=== PATIENT | male | born 1970 | race African-American/Black ===

== ENCOUNTER 2018-10-18 23:44 | Emergency (ER) | payer OTHER ==
[~2018-10-18] VITALS: Ht 182.9 cm; Wt 77.1 kg
--- NOTE | 2018-10-19 00:07 | ED Fall/Injury ---
General Chief Complaint: Trauma-Non Activation Stated Complaint: FELL DOWN STAIRS,BACK PAIN Source: patient History of Present Illness Date Seen by Provider: Oct 18, 2018 Time Seen by Provider: 23:53 Initial Comments PT ARRIVES VIA POV FROM HOME--THEN WANTS WHEELCHAIR ON ARRIVAL AND INTO ER ROOM PT STATES AROUND 1500 THIS AFTERNOON, HE WAS "RUNNING DOWN THE STAIRS" INTO THE BASEMENT, AND SLIPPED AND FELL DOWN 3-4 STEPS STATES HE FELL BACK AND LANDED ON HIS BACK STATES "I HAVE PAIN IN THE LOWER LUMBAR ON THE RIGHT SIDE" HAS CHRONIC BACK PAIN NO RADIATION OF PAIN, BUT STANDING/PUTTING WEIGHT ON RIGHT LEG INCREASES PAIN NO PARESTHESIAS OR MOTOR DEFICITS NO PROBLEMS WITH BOWEL OR BLADDER FUNCTION TOOK 1 NAPROXEN 1 HOUR AGO WITHOUT RELIEF. HAS NOT TAKEN ANYTHING ELSE FOR PAIN DID NOT HIT HEAD AND NO LOSS OF CONSCIOUSNESS NO NECK OR UPPER BACK PAIN NO EXTREMITY PAIN, OR HIP PAIN PCP: [facility] IN [place] Allergies and Home Medications Allergies Coded Allergies: No Known Drug Allergies (Unverified , 10/19/18) Patient Home Medication List Home Medication List Reviewed: Yes Review of Systems Review of Systems Constitutional: no symptoms reported Eyes: No Symptoms Reported Ears, Nose, Mouth, Throat: no symptoms reported Respiratory: no symptoms reported Cardiovascular: no symptoms reported Gastrointestinal: no symptoms reported Genitourinary: no symptoms reported Musculoskeletal: see HPI, back pain Skin: no symptoms reported Psychiatric/Neurological: No Symptoms Reported Past Urdonhs-Lehxaz-Wjsdjy Hx Patient Social History Recent Foreign Travel: No Contact w/Someone Who Travel: No Past Medical History Musculoskeletal: Yes Chronic Back Pain Physical Exam Vital Signs Vital Signs - First Documented 10/18/18 23:51 Temp 98.2 Pulse 107 Resp 18 B/P (MAP) 163/113 (130) Pulse Ox 96 O2 Delivery Room Air Capillary Refill : Height, Weight, BMI Height: '" Weight: lbs. oz. kg; BMI Method: General Appearance: WD/WN, no apparent distress, other (SITTING UPRIGHT ON SIDE OF BED, DOES NOT APPEAR TO BE IN ANY DISCOMFORT OR DISTRESS. 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, no motor/sensory deficits, alert, normal mood/affect, oriented x 3 Skin: normal color (PT IS BLACK), warm/dry, tattoos/piercings (EXTENSIVE TATTOOS) [place] Coma Score Best Eye Response: (4) Open Spontaneously Best Verbal Response: (5) Oriented Best Motor Response: (6) Obeys Commands [place] Total: 15 Progress/Results/Core Measures Results/Orders My Orders Orders - KATELYNN SNYDER DO Ct Lumbar Spine Wo (10/19/18 00:00) Ct Pelvis Wo (10/19/18 00:00) Ketorolac Injection (Toradol Injection) (10/19/18 01:30) Orphenadrine Injection (Norflex Injectio (10/19/18 01:30) Vital Signs/I&O 10/18/18 23:51 Temp 98.2 Pulse 107 Resp 18 B/P (MAP) 163/113 (130) Pulse Ox 96 O2 Delivery Room Air Progress Progress Note : Progress Note SLEPT VERY SOUNDLY FOR REMAINDER OF ER STAY--LAYING FLAT AND COMPLETELY OUTSTRETCHED Diagnostic Imaging Comments CT LUMBAR SPINE--NO ACUTE FRACTURE, CHRONIC DEGENERATIVE CHANGES OF LUMBAR SPINE --DISC BULGE L3-L4, L4-L5, L5-S1. WITH MODERATE TO SEVERE SPINAL STENOSIS--PER [facility] VIA FAX @ 0115 CT PELVIS--NO ACUTE FRACTURE--PER [facility] VIA FAX @ 5139 Reviewed: Reviewed by Me Departure Impression Primary Impression: S/P FALL DOWN STAIRS Additional Impressions: Pain of right sacroiliac joint LOWER BACK STRAIN EXACERBATION OF CHRONIC LOWER BACK PAIN Disposition: 01 HOME, SELF-CARE Condition: Stable Departure-Patient Inst. Referrals: NO,LOCAL PHYSICIAN (PCP/Family) Primary Care Physician Patient Instructions: CHRONIC PAIN, Low Back Pain (DC), Sacroiliac Joint Pain (DC) Add. Discharge Instructions: ALTERNATE ICE AND HEAT TO SORE AREA AT 20 MINUTE INTERVALS USE TENS UNIT NEEDED FOR PAIN [facility] All discharge instructions reviewed with patient and/or family. Voiced understanding. Scripts Methylprednisolone (Medrol) 4 Mg Tab.ds.pk 4 MG PO UD, #1 PKG Prov: KATELYNN SNYDER DO 10/19/18 Methocarbamol (Robaxin) 500 Mg Tablet 500 MG PO QID for Muscle Spasms, #20 TAB Prov: KATELYNN SNYDER DO 10/19/18 KATELYNN SNYDER DO Oct 19, 2018 00:07
[2018-10-19] MEDS ORDERED: METH4TAB PO (01:29)
[2018-10-19] MEDS ORDERED: METH500T PO (01:29)
[2018-10-19] MEDS ORDERED: ORPHENADRINE 60 MG/2 ML (NORFLEX) AMP IM ONE (01:30)
[2018-10-19] MEDS ORDERED: KETOROLAC 60 MG/2 ML VIAL IM ONE (01:30)
[2018-10-19] MEDS ORDERED: RX-CYCLOBENZAPRINE 10 MG (FLEXERIL) TAB PPK#3 PO STA (01:30)
[2018-10-19 01:40] VITALS: BP 164/113
[2018-10-19] MEDS ORDERED: RX-CYCLOBENZAPRINE 10 MG (FLEXERIL) TAB PPK#3 PO PRN (01:45)
--- NOTE | 2018-10-19 07:15 | Diagnostic Imaging Report ---
PROCEDURE: CT pelvis without contrast. TECHNIQUE: Multiple contiguous axial images were obtained through the pelvis without the use of intravenous contrast. Sagittal and coronal reformations were performed. Auto Exposure Controls were utilized during the CT exam to meet ALARA standards for radiation dose reduction. INDICATION: Low back pain post fall. CORRELATION STUDY: None FINDINGS: Pelvis is intact with evidence for acute displaced pelvic fracture. Bilateral hip joints maintained. There is ankylosis across the bilateral sacroiliac joints. Sacrum intact. Soft tissue assessment is limited given bony algorithm. There is however asymmetric edema in the subcutaneous tissues of the right gluteal region . IMPRESSION: 1. Negative for acute displaced pelvic fracture. 2. Prominent asymmetric soft tissue edema/hematoma about the right gluteal region. Dictated by: Dictated on workstation # [id number]
--- NOTE | 2018-10-19 07:17 | Diagnostic Imaging Report ---
PROCEDURE: CT lumbar spine without contrast. TECHNIQUE: Multiple contiguous axial images were obtained through the lumbar spine without the use of intravenous contrast. Sagittal and coronal reformations were then performed. Auto Exposure Controls were utilized during the CT exam to meet ALARA standards for radiation dose reduction. INDICATION: Low back pain post fall. CORRELATION STUDY: None FINDINGS: Lumbar spinal alignment anatomic. Lumbar vertebral body heights are maintained. No acute fracture. The posterior elements intact and in normal alignment. There is slight broad-based disc protrusion at the L3-L4 level slightly extrinsic towards the right. Moderate spinal stenosis. At the L4-5 level, broad-based disc protrusion, ligamentum flavum hypertrophy. Results in rather significant spinal stenosis. L5-S1 level demonstrates mild disc bulge. IMPRESSION: 1. Negative for acute lumbar fracture. 2. Lumbar disc disease as above. There are areas of resultant spinal canal stenosis. A preliminary report was provided by [facility]. Dictated by: Dictated on workstation # [id number]
== END 2018-10-19 01:40 | disposition home or self-care (01) ==
LOC: ER 23:46
DX: S39.012A Strain of muscle, fascia and tendon of lower back, initial encounter (principal); M53.3 Sacrococcygeal disorders, not elsewhere classified; G89.29 Other chronic pain; R40.2142 Coma scale, eyes open, spontaneous, at arrival to emergency department; R40.2252 Coma scale, best verbal response, oriented, at arrival to emergency department; R40.2362 Coma scale, best motor response, obeys commands, at arrival to emergency department; W10.8XXA Fall (on) (from) other stairs and steps, initial encounter
CPT/HCPCS: 72131; 72192

== ENCOUNTER 2019-11-09 22:04 | Emergency (ER) | payer BC ==
[~2019-11-09] VITALS: Ht 190 cm; Wt 81.0 kg
[~2019-11-09 22:04] MED LIST: METH4TAB PO; METH500T PO
[2019-11-09] MEDS ORDERED: RT-ALBUTEROL SULF 2.5 MG/3 ML PRE-MIX VIAL ONE (22:33)
[2019-11-09] MEDS ORDERED: RX-ALBUTEROL INHALER (PROAIR) 8.5 GM IH ONE (22:35)
[2019-11-09] MEDS ORDERED: RX-ALBUTEROL INHALER (PROAIR) 8.5 GM IH STA (22:40)
[2019-11-09 22:43] LABS: BASOPHILS % (AUTO) 1 % (0-10); EOSINOPHILS # (AUTO) 0.1 10^3/uL (0.0-0.3); EOSINOPHILS % (AUTO) 2 % (0-10); HEMATOCRIT 43 % (40-54); HEMOGLOBIN 15.5 G/DL (13.3-17.7); LYMPHOCYTES # (AUTO) 2.6 X 10^3 (1.0-4.0); LYMPHOCYTES % (AUTO) 33 % (12-44); MEAN CORPUSCULAR HEMOGLOBIN 27 PG (25-34); MEAN CORPUSCULAR HGB CONC 36 G/DL (32-36); MEAN CORPUSCULAR VOLUME 75 FL (80-99); MEAN PLATELET VOLUME 11.6 FL (7.4-10.4); MONOCYTES # (AUTO) 0.7 X 10^3 (0.0-1.0); MONOCYTES % (AUTO) 9 % (0-12); NEUTROPHILS # (AUTO) 4.6 X 10^3 (1.8-7.8); NEUTROPHILS % (AUTO) 57 % (42-75); PLATELET COUNT 189 10^3/uL (130-400); RED CELL DISTRIBUTION WIDTH 15.4 % (10.0-14.5)
--- NOTE | 2019-11-09 22:51 | ED Cough/URI ---
General Chief Complaint: Respiratory Problems Stated Complaint: SOA / COUGH / FEVER History of Present Illness Date Seen by Provider: Nov 09, 2019 Time Seen by Provider: 22:19 Initial Comments 49 year old male presents with productive cough, chills, hasn't checked temperature, and SOA. History of asthma, but hasn't used inhaler in several years. No known COVID 19 exposure, but several family members come and go from the home and to work/other family member homes. No travel outside [facility] Appetite has been good, eating normal, able to attend work, no change in sense of smell. Smokes 1/2 pack a day. He works at [employer]. Timing/Duration: yesterday Severity/Quality: productive cough Prior Episodes/Possible Cause: no prior episodes Associated Symptoms: chest pain/soreness, cough, fever/chills, muscle aches, nasal congestion, shortness of breath, wheezing Allergies and Home Medications Allergies Coded Allergies: No Known Drug Allergies (Unverified , 10/19/18) Home Medications Azithromycin 250 Mg Tablet, 250 MG PO DAILY Prescribed by: REMA TYLER on 11/09/19 232 Dexamethasone 4 Mg Tablet, 4 MG PO DAILY Prescribed by: REMA TYLER on 11/09/19 232 Methocarbamol 500 Mg Tablet, 500 MG PO QID Prescribed by: KATELYNN SNYDER on 10/19/18 012 Methylprednisolone 4 Mg Tab.ds.pk, 4 MG PO UD Prescribed by: KATELYNN SNYDER on 10/19/18 0129 Patient Home Medication List Home Medication List Reviewed: Yes Review of Systems Review of Systems Constitutional: see HPI, chills, malaise EENTM: see HPI, no symptoms reported Respiratory: see HPI, cough, short of breath, wheezing Cardiovascular: no symptoms reported, see HPI; No chest pain Gastrointestinal: no symptoms reported, see HPI; No abdominal pain, No heartburn, No loss of appetite, No nausea, No vomiting Skin: no symptoms reported, see HPI All Other Systems Reviewed Negative Unless Noted: Yes Past Esazado-Etjiwj-Rgvfdn Hx Past Med/Social Hx: Reviewed Nursing Past Med/Soc Hx Patient Social History Drug of Choice: THC Type Used: Cigarettes 2nd Hand Smoke Exposure: Yes Recent Hopitalizations: No Seasonal Allergies Seasonal Allergies: No Past Medical History Surgeries: No (DENIES) Respiratory: No Cardiac: Yes Hypertension Neurological: No Genitourinary: No Gastrointestinal: No Musculoskeletal: Yes Chronic Back Pain Endocrine: No HEENT: No Cancer: No Psychosocial: No Physical Exam Vital Signs - First Documented 11/09/19 22:19 Temp 37.1 Pulse 95 Resp 20 B/P (MAP) 169/109 (129) Pulse Ox 97 O2 Delivery Room Air Capillary Refill : Height: 6'0" Weight: 170lbs. oz. [phone]; BMI Method:Stated General Appearance: WD/WN, no apparent distress Eyes: Bilateral Eye Normal Inspection, Bilateral Eye PERRL, Bilateral Eye EOMI HEENT: PERRL/EOMI, normal ENT inspection, TMs normal, pharynx normal Neck: non-tender, full range of motion, supple, normal inspection Respiratory: chest non-tender, no respiratory distress, rhonchi, wheezing Cardiovascular: normal peripheral pulses, regular rate, rhythm Gastrointestinal: normal bowel sounds, non tender, soft Extremities: normal range of motion, non-tender, normal inspection, normal capillary refill Neurologic/Psychiatric: no motor/sensory deficits, alert, normal mood/affect, oriented x 3 Skin: normal color, warm/dry Lymphatic: no adenopathy Progress/Results/Core Measures Suspected Sepsis SIRS Temperature: Pulse: Respiratory Rate: Laboratory Tests 11/09/19 22:37: White Blood Count 8.0 Blood Pressure / Mean: Laboratory Tests 11/09/19 22:37: Creatinine 1.24, Platelet Count 189, Total Bilirubin 0.3 Results/Orders Lab Results Laboratory Tests Test 11/09/19 22:37 Range/Units White Blood Count 8.0 4.3-11.0 10^3/uL Red Blood Count 5.71 4.35-5.85 10^6/uL Hemoglobin 15.5 13.3-17.7 G/DL Hematocrit 43 40-54 % Mean Corpuscular Volume 75 L 80-99 FL Mean Corpuscular Hemoglobin 27 25-34 PG Mean Corpuscular Hemoglobin Concent 36 32-36 G/DL Red Cell Distribution Width 15.4 H 10.0-14.5 % Platelet Count 189 130-400 10^3/uL Mean Platelet Volume 11.6 H 7.4-10.4 FL Neutrophils (%) (Auto) 57 42-75 % Lymphocytes (%) (Auto) 33 12-44 % Monocytes (%) (Auto) 9 0-12 % Eosinophils (%) (Auto) 2 0-10 % Basophils (%) (Auto) 1 0-10 % Neutrophils # (Auto) 4.6 1.8-7.8 X 10^3 Lymphocytes # (Auto) 2.6 1.0-4.0 X 10^3 Monocytes # (Auto) 0.7 0.0-1.0 X 10^3 Eosinophils # (Auto) 0.1 0.0-0.3 10^3/uL Basophils # (Auto) 0.0 0.0-0.1 10^3/uL Erythrocyte Sedimentation Rate 1 0-15 MM/HR D-Dimer 0.33 0.00-0.49 UG/ML Sodium Level 140 135-145 MMOL/L Potassium Level 4.1 3.6-5.0 MMOL/L Chloride Level 107 98-107 MMOL/L Carbon Dioxide Level 22 21-32 MMOL/L Anion Gap 11 5-14 MMOL/L Blood Urea Nitrogen 12 7-18 MG/DL Creatinine 1.24 0.60-1.30 MG/DL Estimat Glomerular Filtration Rate > 60 BUN/Creatinine Ratio 10 Glucose Level 104 70-105 MG/DL Calcium Level 9.0 8.5-10.1 MG/DL Corrected Calcium 8.7 8.5-10.1 MG/DL Total Bilirubin 0.3 0.1-1.0 MG/DL Aspartate Amino Transf (AST/SGOT) 27 5-34 U/L Alanine Aminotransferase (ALT/SGPT) 33 0-55 U/L Alkaline Phosphatase 84 40-136 U/L Lactate Dehydrogenase 182 125-220 U/L Troponin I 0.028 <0.028 NG/ML C-Reactive Protein High Sensitivity 0.18 0.00-0.50 MG/DL Total Protein 7.2 6.4-8.2 GM/DL Albumin 4.4 3.2-4.5 GM/DL Procalcitonin 0.02 <0.10 NG/ML Micro Results Microbiology 11/09/19 Influenza Types A,B Antigen (SHAMA) - Final, Complete My Orders Orders - REMA TYLER Cbc With Automated Diff (11/09/19 22:07) Comprehensive Metabolic Panel (11/09/19 22:07) Fibrin Degradation Products (11/09/19 22:07) Procalcitonin (Pct) (11/09/19 22:07) Hs C Reactive Protein (11/09/19 22:07) Erythrocyte Sedimentation Rate (11/09/19 22:07) LDH (11/09/19 22:07) Chest 1 View, Ap/Pa Only (11/09/19 22:34) Rx-Albuterol Inhaler (Rx-Proair) (11/09/19 22:40) Albuterol Pre-Mix Nebs (Rt) (Proventil (11/09/19 22:33) Rx-Albuterol Inhaler (Rx-Proair) (11/09/19 22:35) Troponin I (11/09/19 22:37) Influenza A And B Antigens (11/09/19 23:09) Azithromycin Tablet (Zithromax Tablet) (11/09/19 23:15) Metoprolol Tartrate Injection (Lopressor (11/09/19 23:30) Dexamethasone Injection (Decadron Inject (11/09/19 23:30) Medications Given in ED Current Medications Medications Dose Ordered Sig/Carmelita Route Start Time Stop Time Status Last Admin Dose Admin Azithromycin 500 mg ONCE ONCE PO 11/09/19 23:15 11/09/19 23:16 UNV 11/09/19 23:20 500 MG Dexamethasone Sodium Phosphate 4 mg ONCE ONCE IV 11/09/19 23:30 11/09/19 23:31 UNV 11/09/19 23:25 4 MG Metoprolol Tartrate 5 mg ONCE ONCE IV 11/09/19 23:30 11/09/19 23:31 UNV 11/09/19 23:27 5 MG Vital Signs/I&O 11/09/19 22:19 Temp 37.1 Pulse 95 Resp 20 B/P (MAP) 169/109 (129) Pulse Ox 97 O2 Delivery Room Air Capillary Refill : Progress Note : Time: 22:19 Progress Note Patient seen and evaluated, will labs, does not meet criteria for COVID testing. Will obtain Chest x-ray. Pulse 90-100, SaO2 95-98% on RA. No resp distress. 0 2 puffs albuterol MDI with spacer. 2244 Continues to have HR in 90s. Chest xray indicative of RLL Pneum. Lungs continue to have wheezing in upper lobes and rhonchi right LL. SaO2 96% on RA. W ill give 2 additional MDI puffs with albuterol. 2300 Discussed CXR and labs with Dr. Lund, will give azithromycin 500 mg orally and Decadron 4 mg IV. Plan d/c to home. 2324 B/P continues to be elevated 170/110, will give Metoprolol 5 mg IV. He was on B/P medication in the past but it was stopped. Will establish care with PCP and have this addressed. Labs WNL. 2340 B/P trending down 150s/90s. Pulse 76-88. SaO2 97%. Patient reports less chest congestion and no SOA. Influenza negative. Discharge instructions, quarantine restrictions and return precautions reviewed. Diagnostic Imaging Diagonstic Imaging: Xray Plain Films/CT/US/NM/MRI: chest Comments Right lower lobe infiltrate. Reviewed: Reviewed/Discussed (With Dr Lund) Departure Impression Primary Impression: Pneumonia Qualified Codes: J18.1 - Lobar pneumonia, unspecified organism Additional Impressions: Asthma Qualified Codes: J45.20 - Mild intermittent asthma, uncomplicated Hypertension Qualified Codes: I10 - Essential (primary) hypertension Disposition: HOME, SELF-CARE Condition: Stable Departure-Patient Inst. Referrals: NO,LOCAL PHYSICIAN (PCP/Family) Primary Care Physician Patient Instructions: COVID19, Community-Acquired Pneumonia, Adult (DC), High Blood Pressure (DC) Add. Discharge Instructions: Stay at home and quarantine, until you feel good for 3 days and no fever. Obtain thermometer and check your temperature. Quarantine away from other family members. Wear mask when you must be closer than 6 feet to them. Take antibiotics, as prescribed. Use the inhaler 2-4 puffs every 4 hours, as needed for chest tightness and wheezing. Use Muccinex 1 tablet every 12 hours with 1 full glass of water. [facility]. Need to be seen for your blood pressure. Return to the Emergency Dept if difficulty breathing, fever greater than 101, not relieved by Tylenol or Motrin, chest pain or new, urgent health care needs. All discharge instructions reviewed with patient and/or family. Voiced understanding. Scripts Dexamethasone (Dexamethasone) 4 Mg Tablet 4 MG PO DAILY, #4 TAB 0 Refills Prov: REMA TYLER 11/09/19 Azithromycin (Azithromycin) 250 Mg Tablet 250 MG PO DAILY, #4 TAB 0 Refills Prov: REMA TYLER 11/09/19 Work/School Note: Work Release Form Date Seen in the Emergency Department: Nov 09, 2019 Other Restrictions Listed Below: May return to work when fever free for 3 days Restrictions: Off work 5-7 days REMA TYLER Nov 09, 2019 22:51
[2019-11-09 22:55] LABS: ALBUMIN 4.4 GM/DL (3.2-4.5); CHLORIDE 107 MMOL/L (98-107); POTASSIUM 4.1 MMOL/L (3.6-5.0); SODIUM 140 MMOL/L (135-145)
[2019-11-09 22:58] LABS: GLUCOSE 104 MG/DL (70-105); TOTAL PROTEIN 7.2 GM/DL (6.4-8.2)
[2019-11-09 22:59] LABS: BILIRUBIN,TOTAL 0.3 MG/DL (0.1-1.0); CARBON DIOXIDE 22 MMOL/L (21-32)
[2019-11-09 23:01] LABS: ALKALINE PHOSPHATASE 84 U/L (40-136)
[2019-11-09 23:02] LABS: CREATININE SERUM 1.24 MG/DL (0.60-1.30); GFR ESTIMATED > 60
[2019-11-09 23:03] LABS: BUN/CREATININE RATIO 10
[2019-11-09 23:04] LABS: ALANINE AMINOTRANSFERASE 33 U/L (0-55)
[2019-11-09] MEDS ORDERED: AZITHROMYCIN 250 MG TAB (ZITHROMAX) PO ONE ×2 (23:12→23:15)
[2019-11-09] MEDS ORDERED: DEXAMETHASONE 4 MG/ML SDV (DECADRON) ONE (23:15)
[2019-11-09] MEDS ORDERED: meTOprolol 5 MG/5 ML (LOPRESSOR) VIAL ONE (23:15)
[2019-11-09] MEDS ORDERED: AZIT250T12 PO (23:20)
[2019-11-09 23:21] LABS: ERYTHROCYTE SEDIMENTATION RATE 1 MM/HR (0-15)
[2019-11-09] MEDS ORDERED: DEXA4TAB PO (23:22)
[2019-11-09] MEDS ORDERED: DEXAMETHASONE 4 MG/ML SDV (DECADRON) IV ONE (23:30)
[2019-11-09] MEDS ORDERED: meTOprolol 5 MG/5 ML (LOPRESSOR) VIAL IV ONE (23:30)
[2019-11-09 23:53] VITALS: BP 163/117
--- NOTE | 2019-11-10 06:08 | Diagnostic Imaging Report ---
INDICATION: Cough and congestion COMPARISON: None FINDINGS: Single frontal view of the chest demonstrates normal heart size and pulmonary vascularity. The lungs are well aerated and clear. No large pleural effusion or pneumothorax is seen. The visualized osseous structures show no acute abnormalities. IMPRESSION: 1. No acute cardiopulmonary process. Dictated by: Dictated on workstation # [id number]
== END 2019-11-09 23:53 | disposition home or self-care (01) ==
LOC: EDUNIT# 22:04 → ER 22:07
DX: J18.1 Lobar pneumonia, unspecified organism (principal); J45.20 Mild intermittent asthma, uncomplicated; I10 Essential (primary) hypertension; M54.9 Dorsalgia, unspecified; F17.210 Nicotine dependence, cigarettes, uncomplicated
CPT/HCPCS: 36415; 71045; 80053; 83615; 84145; 84484; 85025; 85379; 85652; 86141; 87804

== ENCOUNTER → 2020-12-28 | Outpatient (REF) ==
[~2020-12-28] MED LIST changes: +AZIT250T12 PO; +DEXA4TAB PO
--- NOTE | 2020-12-28 10:49 | Diagnostic Imaging Report ---
INDICATION: Right shoulder pain for two to three months, increasing over the last two weeks. TIME OF EXAM: 10:37 a.m. FINDINGS: Glenohumeral and acromioclavicular alignment are normal. Acromiohumeral space is normal. No fracture or dislocation is identified. IMPRESSION: No acute bony abnormality is detected. Dictated by: Dictated on workstation # [id number]
--- NOTE | 2020-12-28 10:51 | Diagnostic Imaging Report ---
INDICATION: Neck pain. TIME OF EXAM: 10:34 a.m. FINDINGS: Curvature and alignment of the cervical spine is normal. There is significant degenerative disc disease at C5-C6 level with disc space narrowing and marginal osteophyte formation. Prevertebral tissues are normal. No fractures are identified. Odontoid appears intact. IMPRESSION: Cervical spondylosis, greatest at C5-C6 level. No acute bony abnormality is detected. Dictated by: Dictated on workstation # [id number]
== END ==
LOC: OCC 10:17
PROVIDERS: ATTEND Nurse Practitioner Family
DX: M47.812 Spondylosis without myelopathy or radiculopathy, cervical region (principal)
CPT/HCPCS: 72040; 73030

== ENCOUNTER → 2021-02-17 | Outpatient (CLI) | payer BC | LOC: CARD 12:00 | PROVIDERS: ATTEND Internal Medicine Cardiovascular Disease | DX: I51.7 Cardiomegaly (principal) | CPT/HCPCS: 93306 ==

== ENCOUNTER 2021-04-24 23:42 | Emergency (ER) | payer BC ==
[~2021-04-24] VITALS: Ht 152 cm; Wt 83.0 kg
[2021-04-25] MEDS ORDERED: RX-ALBUTEROL INHALER 8.5 GM HFA (PROAIR) IH STA (00:30)
--- NOTE | 2021-04-25 00:30 | ED Chest Pain ---
General Chief Complaint: Cough/Cold/Flu Symptoms Stated Complaint: SOB,CP,HIGH BLOOD PRESSURE Nursing Triage Note: PT PRESENTS TO THE ED C/O COUGH, CHEST PAIN AND FEELING UNABLE TO TAKE A FULL BREATH FOR THE LAST FOUR DAYS. SYMPTOMS BEGAN CONGESTION AND COUGH, DEVELOPED MIDSTRENAL CP TWO DAYS AGO THAT IS DESCRIBED SHARP Source: patient Exam Limitations: no limitations History of Present Illness Date Seen by Provider: Apr 25, 2021 Time Seen by Provider: 00:21 Initial Comments Patient to the ER by private conveyance with significant other and chief complaint of chest pain shortness of air for the past 4 days progressively worsening. He went to [place] today and they swabbed him for Covid which was negative and let him go home. He is having chest pain down his bilateral lower chest worse on deep inspiration. He has a history of hypertension and hyperlipidemia but no history of coronary disease. No history of diabetes. Smokes half pack cigarettes a day. No history of COPD or asthma that he is aware of. For the past couple days has been having intermittent left-sided of his sternum chest pain. It is deep and not changed by deep inspiration or direct palpation. No familial history of early onset coronary disease. Allergies and Home Medications Allergies Coded Allergies: No Known Drug Allergies (Unverified , 10/19/18) Patient Home Medication List Home Medication List Reviewed: Yes Azithromycin (Azithromycin) 250 Mg Tablet, 250 MG PO DAILY Prescribed by: REMA TYLER on 11/09/192319 Benzonatate (Tessalon Perles) 100 Mg Capsule, 100 MG PO Q6H PRN for COUGH Prescribed by: BRENDEN WATTS on 04/25/21 022 Dexamethasone (Dexamethasone) 4 Mg Tablet, 4 MG PO DAILY Prescribed by: REMA TYLER on 11/09/19 232 Methocarbamol (Robaxin) 500 Mg Tablet, 500 MG PO QID Prescribed by: KATELYNN SNYDER on 10/19/18 012 Methylprednisolone (Medrol) 4 Mg Tab.ds.pk, 4 MG PO UD Prescribed by: KATELYNN SNYDER on 10/19/18 012 Review of Systems Review of Systems Constitutional: No chills, No fever; malaise EENTM: No Blurred Vision, No Double Vision Respiratory: Cough, SOA With Exertion; Denies Wheezing Cardiovascular: Denies Chest Pain, Denies Edema Gastrointestinal: Denies Abdominal Pain, Denies Constipated, Denies Diarrhea Genitourinary: Denies Burning, Denies Discharge Musculoskeletal: No back pain, No joint pain Skin: No pruritus, No rash All Other Systems Reviewed Negative Unless Noted: Yes Past Bfziepy-Oxekeu-Bgwpxa Hx Patient Social History Tobacco Use?: Yes Tobacco type used: Cigarettes Use of E-Cig and/or Vaping dev: No Substance use?: No Immunizations Up To Date PED Vaccines UTD: Yes Seasonal Allergies Seasonal Allergies: No Past Medical History Surgeries: No (DENIES) Respiratory: Yes Asthma Cardiac: Yes Hypertension Neurological: No Genitourinary: Yes Kidney Stones Gastrointestinal: No Musculoskeletal: Yes Chronic Back Pain Endocrine: No HEENT: No Cancer: No Psychosocial: No Integumentary: No Physical Exam Vital Signs Vital Signs - First Documented 04/24/21 23:51 Temp 37.1 Pulse 99 Resp 18 B/P (MAP) 159/95 (116) Pulse Ox 96 O2 Delivery Room Air Capillary Refill : Less Than 3 Seconds Height, Weight, BMI Height: 6'0" Weight: 170lbs. oz. [id number]; 35.00 BMI Method:Stated General Appearance: No Apparent Distress, WD/WN HEENT: PERRL/EOMI, Pharynx Normal, Moist Mucous Membranes Neck: Full Range of Motion, Normal Inspection Respiratory: Chest Non Tender, No Accessory Muscle Use, No Respiratory Distress, Wheezing (Few, end expiratory, mild) Cardiovascular: Regular Rate, Rhythm, No JVD, Normal Peripheral Pulses Gastrointestinal: Normal Bowel Sounds, Non Tender, Soft Extremity: Normal Capillary Refill, Normal Inspection, Pedal Edema (Trace bipedal) Neurologic/Psychiatric: Alert, Oriented x3 Skin: Normal Color, Warm/Dry Progress/Results/Core Measures Results/Orders Lab Results Laboratory Tests Test 04/25/21 00:16 04/25/21 01:08 04/25/21 02:22 Range/Units White Blood Count 6.3 4.3-11.0 10^3/uL Red Blood Count 5.31 4.30-5.52 10^6/uL Hemoglobin 14.5 13.3-17.7 g/dL Hematocrit 41 40-54 % Mean Corpuscular Volume 77 L 80-99 fL Mean Corpuscular Hemoglobin 27 25-34 pg Mean Corpuscular Hemoglobin Concent 35 32-36 g/dL Red Cell Distribution Width 15.2 H 10.0-14.5 % Platelet Count 174 130-400 10^3/uL Mean Platelet Volume 11.8 9.0-12.2 fL Immature Granulocyte % (Auto) 0 % Neutrophils (%) (Auto) 46 42-75 % Lymphocytes (%) (Auto) 34 12-44 % Monocytes (%) (Auto) 19 H 0-12 % Eosinophils (%) (Auto) 1 0-10 % Basophils (%) (Auto) 0 0-10 % Neutrophils # (Auto) 2.9 1.8-7.8 10^3/uL Lymphocytes # (Auto) 2.1 1.0-4.0 10^3/uL Monocytes # (Auto) 1.2 H 0.0-1.0 10^3/uL Eosinophils # (Auto) 0.1 0.0-0.3 10^3/uL Basophils # (Auto) 0.0 0.0-0.1 10^3/uL Immature Granulocyte # (Auto) 0.0 0.0-0.1 10^3/uL Neutrophils % (Manual) 45 % Lymphocytes % (Manual) 34 % Monocytes % (Manual) 21 % Anisocytosis SLIGHT Microcytosis SLIGHT D-Dimer 0.29 0.00-0.49 UG/ML Sodium Level 137 135-145 MMOL/L Potassium Level 3.7 3.6-5.0 MMOL/L Chloride Level 105 98-107 MMOL/L Carbon Dioxide Level 21 21-32 MMOL/L Anion Gap 11 5-14 MMOL/L Blood Urea Nitrogen 15 7-18 MG/DL Creatinine 1.41 H 0.60-1.30 MG/DL Estimat Glomerular Filtration Rate 65 BUN/Creatinine Ratio 11 Glucose Level 183 H 70-105 MG/DL Calcium Level 8.8 8.5-10.1 MG/DL Corrected Calcium 8.9 8.5-10.1 MG/DL Total Bilirubin 0.3 0.1-1.0 MG/DL Aspartate Amino Transf (AST/SGOT) 35 H 5-34 U/L Alanine Aminotransferase (ALT/SGPT) 53 0-55 U/L Alkaline Phosphatase 77 40-136 U/L Troponin I < 0.028 < 0.028 <0.028 NG/ML C-Reactive Protein High Sensitivity 1.76 H 0.00-0.50 MG/DL B-Type Natriuretic Peptide < 10.0 <100.0 PG/ML Total Protein 6.9 6.4-8.2 GM/DL Albumin 3.9 3.2-4.5 GM/DL Influenza Type A Antigen NEGATIVE NEGATIVE Influenza Type B Antigen NEGATIVE NEGATIVE My Orders Orders - BRENDEN WATTS Ekg Tracing (04/24/21 23:47) Continuous Ekg Monitoring (04/24/21 23:47) Chest 1 View, Ap/Pa Only (04/25/21 00:27) Cbc With Automated Diff (04/25/21 00:27) Comprehensive Metabolic Panel (04/25/21 00:27) Hs C Reactive Protein (04/25/21 00:27) Fibrin Degradation Products (04/25/21 00:27) Troponin I (04/25/21 00:27) Rx-Albuterol Inhaler (Rx-Ventolin Hfa In (04/25/21 00:30) Manual Differential (04/25/21 00:16) Troponin I (04/25/21 02:15) Influenza A & B Antigens (04/25/21 01:05) Covid-19 External Lab Results (04/25/21 01:06) BNP (04/25/21 01:08) Vital Signs/I&O 04/24/21 23:51 Temp 37.1 Pulse 99 Resp 18 B/P (MAP) 159/95 (116) Pulse Ox 96 O2 Delivery Room Air Blood Pressure Mean: 116 Progress Progress Note : Time: 01:04 Progress Note Appears to have a viral bronchitis. Because he is having this persistent chest pain for the past couple days we will get a delta troponin. D-dimer rules out blood clots. We will give him a round of steroids. After couple puffs of ProAir he is having less expiratory wheezing but states that he feels about the same. We can give him some Tessalon Perles. We will test him for influenza. He had a negative Covid test today at [facility]. Initial ECG Impression Date: Apr 25, 2021 Initial ECG Impression Time: 00:06 Initial ECG Rate: 93 Initial ECG Rhythm: Normal Sinus Initial ECG Intervals: Normal Initial ECG Impression: Normal Comment Normal sinus rhythm without clinically relevant ST elevation or depression. There is a minimal, nondiagnostic half block ST elevation in leads V1, V2 of no certain clinical significance. Diagnostic Imaging Diagonstic Imaging: Xray Plain Films/CT/US/NM/MRI: chest Comments No acute cardiopulmonary process on 1 view chest x-ray Reviewed: Reviewed by Me Departure Impression Primary Impression: Bronchitis Additional Impressions: Pleurisy Chest wall pain Disposition: HOME, SELF-CARE Condition: Stable Departure-Patient Inst. Decision time for Depature: 03:06 Referrals: [facility] (PCP) Primary Care Physician NO,LOCAL PHYSICIAN (Family) Primary Care Physician Patient Instructions: Acute Bronchitis, Adult (DC), Pleuritic Chest Pain ED, How to Use a Metered Dose Inhaler ED Add. Discharge Instructions: 2 puffs albuterol through the spacer every 4 hours as needed for coughing fits, wheezing or shortness of air. Tessalon Perles 1 capsule every 6 hours as necessary for coughing fits. Drink plenty of fluids and use vapor rubs such as Vicks or Mentholatum. Throat lozenges with menthol or eucalyptus. Hot tea with honey and lemon can be helpful for cough and sore throat. Expect to be sick for about 7 to 10 days. Prednisone 2 tablets in the morning daily for 5 days to help reduce your cough. Follow-up with your primary care provider if not seeing improvement in the next 10 to 14 days. All discharge instructions reviewed with patient and/or family. Voiced understanding. Scripts Prednisone (Prednisone) 20 Mg Tab 40 MG PO DAILY for 5 Days, #10 TAB 0 Refills Prov: BRENDEN WATTS 04/25/21 Benzonatate (TESSALON PERLES) 100 Mg Capsule 100 MG PO Q6H PRN for COUGH, #30 CAP 0 Refills Prov: BRENDEN WATTS 04/25/21 Work/School Note: Work Release Form Date Seen in the Emergency Department: Apr 25, 2021 Return to Work: May 01, 2021 Restrictions: Return-No Fever (24hrs) BRENDEN WATTS Apr 25, 2021 00:30
[2021-04-25 00:33] LABS: BASOPHILS % (AUTO) 0 % (0-10); EOSINOPHILS # (AUTO) 0.1 10^3/uL (0.0-0.3); EOSINOPHILS % (AUTO) 1 % (0-10); HEMATOCRIT 41 % (40-54); HEMOGLOBIN 14.5 g/dL (13.3-17.7); LYMPHOCYTES # (AUTO) 2.1 10^3/uL (1.0-4.0); LYMPHOCYTES % (AUTO) 34 % (12-44); MEAN CORPUSCULAR HEMOGLOBIN 27 pg (25-34); MEAN CORPUSCULAR HGB CONC 35 g/dL (32-36); MEAN CORPUSCULAR VOLUME 77 fL (80-99); MEAN PLATELET VOLUME 11.8 fL (9.0-12.2); MONOCYTES # (AUTO) 1.2 10^3/uL (0.0-1.0); MONOCYTES % (AUTO) 19 % (0-12); NEUTROPHILS # (AUTO) 2.9 10^3/uL (1.8-7.8); NEUTROPHILS % (AUTO) 46 % (42-75); PLATELET COUNT 174 10^3/uL (130-400); WHITE BLOOD COUNT 6.3 10^3/uL (4.3-11.0)
[2021-04-25 00:40] LABS: ALBUMIN 3.9 GM/DL (3.2-4.5); CHLORIDE 105 MMOL/L (98-107); POTASSIUM 3.7 MMOL/L (3.6-5.0); SODIUM 137 MMOL/L (135-145)
[2021-04-25 00:41] LABS: CALCIUM 8.8 MG/DL (8.5-10.1)
[2021-04-25 00:43] LABS: GLUCOSE 183 MG/DL (70-105); TOTAL PROTEIN 6.9 GM/DL (6.4-8.2)
[2021-04-25 00:44] LABS: BILIRUBIN,TOTAL 0.3 MG/DL (0.1-1.0); CARBON DIOXIDE 21 MMOL/L (21-32)
[2021-04-25 00:46] LABS: ALKALINE PHOSPHATASE 77 U/L (40-136); CREATININE SERUM 1.41 MG/DL (0.60-1.30); GFR ESTIMATED 65
[2021-04-25 00:47] LABS: BUN/CREATININE RATIO 11
[2021-04-25 00:49] LABS: ALANINE AMINOTRANSFERASE 53 U/L (0-55)
[2021-04-25 00:58] LABS: ANISOCYTOSIS SLIGHT; LYMPHOCYTES % (MANUAL) 34 %; MICROCYTOSIS SLIGHT; MONOCYTES % (MANUAL) 21 %; NEUTROPHILS % (MANUAL) 45 %
[2021-04-25] MEDS ORDERED: BENZ100C18 PO (02:25)
[2021-04-25] MEDS ORDERED: PRD20T PO (03:13)
[2021-04-25 03:17] VITALS: BP 135/98
--- NOTE | 2021-04-25 07:05 | Diagnostic Imaging Report ---
INDICATION: Shortness of air, cough, congestion. TECHNIQUE: Single view chest 12:44 AM. CORRELATION STUDY: 11/09/2019 FINDINGS: The heart size, mediastinal configuration and pulmonary vascularity are within normal limits. The lungs are clear with no consolidating infiltrate. There is no significant effusion or pneumothorax. IMPRESSION: 1. Negative for acute abnormality of the chest. Dictated by: Dictated on workstation # [id number]
== END 2021-04-25 03:22 | disposition home or self-care (01) ==
LOC: EDUNIT# 23:42 → ER 23:45
DX: J40 Bronchitis, not specified as acute or chronic (principal); R09.1 Pleurisy; R07.89 Other chest pain; I10 Essential (primary) hypertension; Z20.822 Contact with and (suspected) exposure to COVID-19; Z73.0 Burn-out; F17.210 Nicotine dependence, cigarettes, uncomplicated; Z79.52 Long term (current) use of systemic steroids
CPT/HCPCS: 36415; 71045; 80053; 83880; 84484; 85007; 85027; 85379; 86141; 87804; 93005